=== PATIENT | male | born 1960 | race Caucasian/White ===

== ENCOUNTER 2017-09-15 22:45 | Inpatient (IN) | payer MEDICARE, MEDICAID ==
[~2017-09-15] VITALS: Ht 177.8 cm; Wt 89.5 kg
[2017-09-15] MEDS ORDERED: LABE100T PO (23:13)
[2017-09-15] MEDS ORDERED: SERT50TA12 PO (23:13)
[2017-09-15] MEDS ORDERED: BENA20 PO (23:13)
[2017-09-15] MEDS ORDERED: TRAM50TA4 PO (23:13)
[2017-09-15] MEDS ORDERED: ATOR40TA28 PO (23:13)
[2017-09-15] MEDS ORDERED: QUET200T PO (23:13)
[2017-09-15] MEDS ORDERED: METF500T4 PO (23:13)
[2017-09-15] MEDS ORDERED: INSULIN REGULAR, HUMAN 100 UNITS/ML SQ ONE (23:45)
[2017-09-15 23:52] LABS: GLUCOSE COMMENT 1 Doctor Notified; GLUCOSE COMMENT 2 Repeated; GLUCOSE,POINT OF CARE 415 MG/DL (70-110)
[2017-09-16 00:58] LABS: BASOPHILS % (AUTO) 0.3 % (0.0-2.0); EOSINOPHILS % (AUTO) 1.2 % (1.0-6.0); HEMATOCRIT 36.4 % (41-53); HEMOGLOBIN 12.7 g/dL (13.5-17.5); LYMPHOCYTES # (AUTO) 1.3 K/uL (1.0-4.8); LYMPHOCYTES % (AUTO) 16.8 % (22.0-44.0); MEAN CORPUSCULAR HEMOGLOBIN 32.3 pg (26.0-34.0); MEAN CORPUSCULAR HGB CONC 34.8 G/dL (31.0-37.0); MEAN CORPUSCULAR VOLUME 93 fL (80-100); MONOCYTES # (AUTO) 0.7 K/uL (0.1-1.0); MONOCYTES % (AUTO) 8.6 % (2.0-9.0); NEUTROPHILS # (AUTO) 5.7 K/uL (1.8-7.7); NEUTROPHILS % (AUTO) 73.1 % (40.0-70.0); PLATELET COUNT (AUTO) 274 K/uL (150-450); RED BLOOD CELL COUNT(AUTO) 3.91 MIL/uL (4.50-5.90); RED CELL DISTRIBUTION WIDTH 13.5 % (11.5-14.5); WHITE BLOOD COUNT (AUTO) 7.8 K/uL (4.5-11.0)
[2017-09-16 01:08] LABS: ANION GAP 10 mmol/L (8-16); CARBON DIOXIDE 28 mmol/L (22-29); CHLORIDE 97 mmol/L (98-107); CREATININE 0.98 mg/dL (0.60-1.30); POTASSIUM 4.1 mmol/L (3.5-5.1); SODIUM SERUM 135 mmol/L (136-145); UREA NITROGEN, BLOOD 30 mg/dL (7-18)
[2017-09-16 01:09] LABS: CALCIUM, TOTAL 9.6 mg/dL (8.8-10.5); GLOMERULAR FILTR. RATE CALC > 60 mL/min (>60)
[2017-09-16 01:15] LABS: ALANINE AMINOTRANSFERASE 21 U/L (12-78); ALBUMIN 3.7 g/dL (3.4-5.0); ASPARTATE AMINOTRANSFERASE 11 U/L (15-37); BILIRUBIN,TOTAL 0.5 mg/dL (0.1-1.0); TOTAL PROTEIN, SERUM 7.3 g/dL (6.4-8.2)
[2017-09-16 01:27] LABS: GLUCOSE,POINT OF CARE 346 MG/DL (70-110)
[2017-09-16] MEDS ORDERED: INSULIN REGULAR, HUMAN 100 UNITS/ML SQ ONE (02:00)
[2017-09-16] MEDS ORDERED: QUEtiapine FUMARATE 100 MG TABLET PO ONE (02:15)
[2017-09-16] MEDS ORDERED: LORazepam 2 MG/ML VIAL IM ONE (02:30)
[2017-09-16] MEDS ORDERED: DiphenhydrAMINE HCL 50 MG/ML VIAL IM ONE (02:30)
[2017-09-16 02:57] LABS: GLUCOSE,POINT OF CARE 267 MG/DL (70-110)
[2017-09-16] MEDS ORDERED: QUEtiapine FUMARATE 100 MG TABLET PO PRN (03:45)
[2017-09-16 04:37] LABS: GLUCOSE,POINT OF CARE 204 MG/DL (70-110)
[2017-09-16 05:10] LABS: CHOL/HDL RATIO 4.5 (4.2-7.3); THYROID STIMULATING HORMONE 2.64 uIU/mL (0.36-3.74)
[2017-09-16 05:48] VITALS: BP 140/87
[2017-09-16 06:22] LABS: GLUCOSE,POINT OF CARE 162 MG/DL (70-110)
[2017-09-16] MEDS ORDERED: PNEUMOCOCCAL VACCINE POLYVALENT 0.5 ML VIAL [PPSV23] IM ONE (06:45)
[2017-09-16] MEDS ORDERED: INFLUENZA VIRUS VACCINE QVS 2017-18 (3YR+)/PF 60 MCG/0.5 ML SYRINGE IM ONE (06:45)
[2017-09-16] MEDS ORDERED: CloNIDine HCL 0.1 MG TABLET PO PRN (07:15)
[2017-09-16] MEDS ORDERED: ALBUTEROL SULFATE HFA 90 MCG/PUFF 8 GM INHALER IH PRN (07:15)
[2017-09-16] MEDS ORDERED: GLUCAGON,HUMAN RECOMBINANT 1 MG VIAL IM PRN (07:15)
[2017-09-16] MEDS ORDERED: ACETAMINOPHEN 325 MG TABLET PO PRN (07:15)
[2017-09-16] MEDS ORDERED: PETROLATUM,WHITE 71 GM JELLY TP PRN (07:15)
[2017-09-16] MEDS ORDERED: MAG HYDROX/AL HYDROX/SIMETH ES 30 ML SUSPENSION UDCUP PO PRN (07:15)
[2017-09-16] MEDS ORDERED: MAGNESIUM HYDROXIDE SUSPENSION 30 ML UDCUP PO PRN (07:15)
[2017-09-16] MEDS ORDERED: LOPERAMIDE HCL 2 MG CAPSULE PO PRN (07:15)
[2017-09-16] MEDS ORDERED: ONDANSETRON HCL 4 MG TABLET PO PRN (07:15)
[2017-09-16] MEDS ORDERED: BENZOCAINE/MENTHOL LOZENGE MM PRN (07:15)
[2017-09-16] MEDS ORDERED: BACITRACIN 28.4 GM OINTMENT TP PRN (07:15)
[2017-09-16] MEDS: MetFORMIN HCL 500 MG TABLET PO SCH ×2 (07:26→16:56)
[2017-09-16 08:20] VITALS: BP 145/76
[2017-09-16] MEDS: BENAZEPRIL HCL 20 MG TABLET PO SCH (09:00)
[2017-09-16] MEDS: ATORVASTATIN CALCIUM 40 MG TABLET PO SCH (09:08)
[2017-09-16] MEDS: INSULIN ASPART 100 UNITS/ML SQ PRN ×3 (11:31→20:31)
[2017-09-16 11:32] LABS: GLUCOSE COMMENT 1 Received Meds; GLUCOSE,POINT OF CARE 210 MG/DL (70-110)
[2017-09-16] MEDS: SERTRALINE HCL 50 MG TABLET PO SCH (11:42)
[2017-09-16 16:00] VITALS: BP 155/76
[2017-09-16 16:52] LABS: GLUCOSE COMMENT 1 Received Meds; GLUCOSE,POINT OF CARE 211 MG/DL (70-110)
[2017-09-16] MEDS: QUEtiapine FUMARATE 200 MG TABLET PO SCH (20:06)
[2017-09-16 20:36] LABS: GLUCOSE COMMENT 1 Received Meds; GLUCOSE,POINT OF CARE 291 MG/DL (70-110)
[2017-09-17 00:47] VITALS: BP 132/80
[2017-09-17] MEDS: MetFORMIN HCL 500 MG TABLET PO SCH ×2 (06:16→17:04)
[2017-09-17] MEDS: INSULIN ASPART 100 UNITS/ML SQ PRN ×4 (06:20→21:30)
[2017-09-17 06:43] LABS: GLUCOSE,POINT OF CARE 278 MG/DL (70-110)
[2017-09-17] MEDS: ATORVASTATIN CALCIUM 40 MG TABLET PO SCH (08:22)
[2017-09-17] MEDS: BENAZEPRIL HCL 20 MG TABLET PO SCH (08:23)
[2017-09-17] MEDS: SERTRALINE HCL 50 MG TABLET PO SCH (08:23)
[2017-09-17 08:33] VITALS: BP 124/91
[2017-09-17] MEDS: NICOTINE 21 MG/24 HOUR PATCH TD SCH (09:50)
[2017-09-17 10:57] LABS: GLUCOSE,POINT OF CARE 328 MG/DL (70-110)
[2017-09-17] MEDS: LORazepam 2 MG TABLET PO PRN (13:57)
[2017-09-17 16:29] VITALS: BP 122/69
[2017-09-17 17:02] LABS: GLUCOSE,POINT OF CARE 302 MG/DL (70-110)
[2017-09-17] MEDS: QUEtiapine FUMARATE 200 MG TABLET PO SCH (21:21)
[2017-09-17] MEDS: IBUPROFEN 600 MG TABLET PO PRN (21:46)
[2017-09-17 21:47] LABS: GLUCOSE,POINT OF CARE 283 MG/DL (70-110)
[2017-09-18] MEDS: INSULIN ASPART 100 UNITS/ML SQ PRN ×4 (06:42→17:00)
[2017-09-18] MEDS: MetFORMIN HCL 500 MG TABLET PO SCH ×2 (06:45→16:54)
[2017-09-18 07:00] VITALS: BP 142/92
[2017-09-18 07:43] LABS: GLUCOSE,POINT OF CARE 279 MG/DL (70-110)
[2017-09-18 08:12] VITALS: BP 133/90
[2017-09-18] MEDS: ATORVASTATIN CALCIUM 40 MG TABLET PO SCH (08:12)
[2017-09-18] MEDS: BENAZEPRIL HCL 20 MG TABLET PO SCH (08:12)
[2017-09-18] MEDS: NICOTINE 21 MG/24 HOUR PATCH TD SCH (08:12)
[2017-09-18] MEDS: SERTRALINE HCL 50 MG TABLET PO SCH (08:12)
[2017-09-18 09:57] VITALS: BP 135/86
[2017-09-18] MEDS: IBUPROFEN 600 MG TABLET PO PRN (09:57)
[2017-09-18] MEDS: LORazepam 2 MG TABLET PO PRN ×2 (09:57→15:38)
[2017-09-18 11:08] LABS: GLUCOSE,POINT OF CARE 308 MG/DL (70-110)
[2017-09-18 16:56] LABS: GLUCOSE,POINT OF CARE 356 MG/DL (70-110)
[2017-09-18 17:51] VITALS: BP 130/82
[2017-09-18] MEDS: QUEtiapine FUMARATE 200 MG TABLET PO SCH (20:33)
[2017-09-18 21:37] LABS: GLUCOSE,POINT OF CARE 320 MG/DL (70-110)
[2017-09-19 06:15] VITALS: BP 137/96
[2017-09-19] MEDS: IBUPROFEN 600 MG TABLET PO PRN (06:15)
[2017-09-19] MEDS: LORazepam 2 MG TABLET PO PRN ×2 (06:15→17:42)
[2017-09-19 06:30] VITALS: BP 140/81
[2017-09-19] MEDS: MetFORMIN HCL 500 MG TABLET PO SCH ×2 (07:19→16:32)
[2017-09-19] MEDS: INSULIN ASPART 100 UNITS/ML SQ PRN ×4 (07:24→20:53)
[2017-09-19 07:52] LABS: GLUCOSE,POINT OF CARE 383 MG/DL (70-110)
[2017-09-19] MEDS: SERTRALINE HCL 50 MG TABLET PO SCH (08:55)
[2017-09-19] MEDS: ATORVASTATIN CALCIUM 40 MG TABLET PO SCH (08:55)
[2017-09-19] MEDS: NICOTINE 21 MG/24 HOUR PATCH TD SCH (08:56)
[2017-09-19] MEDS: BENAZEPRIL HCL 20 MG TABLET PO SCH (08:56)
[2017-09-19 09:33] VITALS: BP 155/84
[2017-09-19 12:17] LABS: GLUCOSE,POINT OF CARE 233 MG/DL (70-110)
[2017-09-19 16:32] LABS: GLUCOSE,POINT OF CARE 290 MG/DL (70-110)
[2017-09-19] MEDS: GlipiZIDE 5 MG TABLET PO SCH (16:32)
[2017-09-19 16:46] VITALS: BP 122/75
[2017-09-19] MEDS: QUEtiapine FUMARATE 200 MG TABLET PO SCH (20:40)
[2017-09-19 20:52] LABS: GLUCOSE,POINT OF CARE 261 MG/DL (70-110)
[2017-09-20 00:57] VITALS: BP 120/76
[2017-09-20] MEDS: MetFORMIN HCL 500 MG TABLET PO SCH ×2 (06:33→16:19)
[2017-09-20] MEDS: GlipiZIDE 5 MG TABLET PO SCH ×2 (06:33→16:19)
[2017-09-20] MEDS: INSULIN ASPART 100 UNITS/ML SQ PRN ×4 (06:34→21:23)
[2017-09-20 06:38] LABS: GLUCOSE,POINT OF CARE 282 MG/DL (70-110)
[2017-09-20] MEDS: IBUPROFEN 600 MG TABLET PO PRN (06:48)
[2017-09-20] MEDS: LORazepam 2 MG TABLET PO PRN ×2 (06:48→13:21)
[2017-09-20] MEDS: ATORVASTATIN CALCIUM 40 MG TABLET PO SCH (08:45)
[2017-09-20] MEDS: NICOTINE 21 MG/24 HOUR PATCH TD SCH (08:45)
[2017-09-20] MEDS: BENAZEPRIL HCL 20 MG TABLET PO SCH (08:45)
[2017-09-20] MEDS: SERTRALINE HCL 50 MG TABLET PO SCH (08:45)
[2017-09-20 09:36] VITALS: BP 128/85
[2017-09-20 11:12] LABS: GLUCOSE,POINT OF CARE 293 MG/DL (70-110)
[2017-09-20] MEDS: QUEtiapine FUMARATE 200 MG TABLET PO SCH ×2 (14:32→20:37)
[2017-09-20 16:12] VITALS: BP 131/77
[2017-09-20 16:52] LABS: GLUCOSE,POINT OF CARE 279 MG/DL (70-110)
[2017-09-20 21:22] LABS: GLUCOSE,POINT OF CARE 231 MG/DL (70-110)
[2017-09-20] MEDS: ZOLPIDEM TARTRATE 10 MG TABLET PO PRN (23:30)
[2017-09-21 00:09] VITALS: BP 106/74
[2017-09-21] MEDS: GlipiZIDE 5 MG TABLET PO SCH ×2 (06:32→16:33)
[2017-09-21] MEDS: MetFORMIN HCL 500 MG TABLET PO SCH ×2 (06:32→16:33)
[2017-09-21] MEDS: INSULIN ASPART 100 UNITS/ML SQ PRN ×4 (06:54→21:04)
[2017-09-21 07:22] LABS: GLUCOSE,POINT OF CARE 273 MG/DL (70-110)
[2017-09-21] MEDS: SERTRALINE HCL 50 MG TABLET PO SCH (08:16)
[2017-09-21] MEDS: ATORVASTATIN CALCIUM 40 MG TABLET PO SCH (08:16)
[2017-09-21] MEDS: NICOTINE 21 MG/24 HOUR PATCH TD SCH (08:16)
[2017-09-21] MEDS: QUEtiapine FUMARATE 200 MG TABLET PO SCH ×2 (08:16→20:59)
[2017-09-21] MEDS: BENAZEPRIL HCL 20 MG TABLET PO SCH (08:16)
[2017-09-21] MEDS: LORazepam 2 MG TABLET PO PRN ×2 (08:41→16:39)
[2017-09-21 09:17] VITALS: BP 136/71
[2017-09-21 11:12] LABS: GLUCOSE COMMENT 1 Received Meds; GLUCOSE,POINT OF CARE 279 MG/DL (70-110)
[2017-09-21 17:12] LABS: GLUCOSE COMMENT 1 Received Meds; GLUCOSE,POINT OF CARE 314 MG/DL (70-110)
[2017-09-21 17:41] VITALS: BP 126/69
[2017-09-21] MEDS: ZOLPIDEM TARTRATE 10 MG TABLET PO PRN (20:59)
[2017-09-21 21:16] LABS: GLUCOSE COMMENT 1 Received Meds; GLUCOSE,POINT OF CARE 308 MG/DL (70-110)
[2017-09-22 05:06] VITALS: BP 121/73
[2017-09-22] MEDS: MetFORMIN HCL 500 MG TABLET PO SCH ×2 (06:18→16:31)
[2017-09-22] MEDS: INSULIN ASPART 100 UNITS/ML SQ PRN ×4 (06:19→20:31)
[2017-09-22 07:17] LABS: GLUCOSE,POINT OF CARE 286 MG/DL (70-110)
[2017-09-22] MEDS: GlipiZIDE 5 MG TABLET PO SCH ×2 (07:21→16:30)
[2017-09-22] MEDS: SERTRALINE HCL 50 MG TABLET PO SCH (08:32)
[2017-09-22] MEDS: ATORVASTATIN CALCIUM 40 MG TABLET PO SCH (08:32)
[2017-09-22] MEDS: BENAZEPRIL HCL 20 MG TABLET PO SCH (08:32)
[2017-09-22] MEDS: QUEtiapine FUMARATE 200 MG TABLET PO SCH ×2 (08:32→20:23)
[2017-09-22] MEDS: NICOTINE 21 MG/24 HOUR PATCH TD SCH (08:33)
[2017-09-22 09:19] VITALS: BP 148/98
[2017-09-22] MEDS: LORazepam 2 MG TABLET PO PRN ×2 (11:22→16:10)
[2017-09-22 11:32] LABS: GLUCOSE,POINT OF CARE 306 MG/DL (70-110)
[2017-09-22 16:27] LABS: GLUCOSE COMMENT 1 Received Meds; GLUCOSE,POINT OF CARE 274 MG/DL (70-110)
[2017-09-22 17:00] VITALS: BP 154/95
[2017-09-22 20:00] VITALS: BP 146/80
[2017-09-22] MEDS: ZOLPIDEM TARTRATE 10 MG TABLET PO PRN (20:28)
[2017-09-22 20:37] LABS: GLUCOSE COMMENT 1 Received Meds; GLUCOSE,POINT OF CARE 311 MG/DL (70-110)
[2017-09-22] MEDS: LABETALOL HCL 100 MG TABLET PO SCH (21:46)
[2017-09-22 22:30] VITALS: BP 140/80
[2017-09-23] MEDS: GlipiZIDE 5 MG TABLET PO SCH ×2 (06:09→16:11)
[2017-09-23] MEDS: MetFORMIN HCL 500 MG TABLET PO SCH ×2 (06:09→16:53)
[2017-09-23] MEDS: INSULIN ASPART 100 UNITS/ML SQ PRN ×4 (06:10→20:28)
[2017-09-23 06:30] VITALS: BP 140/86
[2017-09-23 06:47] LABS: GLUCOSE,POINT OF CARE 271 MG/DL (70-110)
[2017-09-23] MEDS: ATORVASTATIN CALCIUM 40 MG TABLET PO SCH (08:21)
[2017-09-23] MEDS: SERTRALINE HCL 50 MG TABLET PO SCH (08:21)
[2017-09-23] MEDS: BENAZEPRIL HCL 20 MG TABLET PO SCH (08:21)
[2017-09-23] MEDS: NICOTINE 21 MG/24 HOUR PATCH TD SCH (08:22)
[2017-09-23] MEDS: LABETALOL HCL 100 MG TABLET PO SCH ×2 (08:22→16:11)
[2017-09-23] MEDS: QUEtiapine FUMARATE 200 MG TABLET PO SCH ×2 (08:22→20:23)
[2017-09-23 10:07] VITALS: BP 131/79
[2017-09-23] MEDS: LORazepam 2 MG TABLET PO PRN ×2 (10:26→17:05)
[2017-09-23 10:57] LABS: GLUCOSE,POINT OF CARE 238 MG/DL (70-110)
[2017-09-23] MEDS: DIVALPROEX SODIUM 500 MG DR TABLET PO SCH (16:11)
[2017-09-23 16:22] LABS: GLUCOSE COMMENT 1 Received Meds; GLUCOSE,POINT OF CARE 339 MG/DL (70-110)
[2017-09-23 16:38] VITALS: BP 132/72
[2017-09-23] MEDS: ZOLPIDEM TARTRATE 10 MG TABLET PO PRN (20:28)
[2017-09-23 20:47] LABS: GLUCOSE COMMENT 1 Received Meds; GLUCOSE,POINT OF CARE 341 MG/DL (70-110)
[2017-09-24 03:50] VITALS: BP 133/77
[2017-09-24] MEDS: GlipiZIDE 5 MG TABLET PO SCH (06:11)
[2017-09-24] MEDS: MetFORMIN HCL 500 MG TABLET PO SCH ×2 (06:11→16:23)
[2017-09-24] MEDS: INSULIN ASPART 100 UNITS/ML SQ PRN ×4 (06:12→21:18)
[2017-09-24 06:43] LABS: GLUCOSE COMMENT 1 Received Meds; GLUCOSE,POINT OF CARE 251 MG/DL (70-110)
[2017-09-24] MEDS: DIVALPROEX SODIUM 500 MG DR TABLET PO SCH ×2 (08:26→16:23)
[2017-09-24] MEDS: BENAZEPRIL HCL 20 MG TABLET PO SCH (08:26)
[2017-09-24] MEDS: LABETALOL HCL 100 MG TABLET PO SCH ×2 (08:26→16:49)
[2017-09-24] MEDS: SERTRALINE HCL 50 MG TABLET PO SCH (08:26)
[2017-09-24] MEDS: QUEtiapine FUMARATE 200 MG TABLET PO SCH ×2 (08:26→20:57)
[2017-09-24] MEDS: NICOTINE 21 MG/24 HOUR PATCH TD SCH (08:26)
[2017-09-24] MEDS: ATORVASTATIN CALCIUM 40 MG TABLET PO SCH (08:26)
[2017-09-24] MEDS: LORazepam 2 MG TABLET PO PRN ×2 (08:28→16:24)
[2017-09-24 08:50] VITALS: BP 122/77
[2017-09-24 11:48] LABS: GLUCOSE,POINT OF CARE 254 MG/DL (70-110)
[2017-09-24] MEDS: GlipiZIDE 10 MG TABLET PO SCH (16:23)
[2017-09-24 16:35] VITALS: BP 138/79
[2017-09-24 16:42] LABS: GLUCOSE COMMENT 1 Received Meds; GLUCOSE,POINT OF CARE 351 MG/DL (70-110)
[2017-09-24] MEDS: ZOLPIDEM TARTRATE 10 MG TABLET PO PRN (21:17)
[2017-09-24 21:27] LABS: GLUCOSE COMMENT 1 Received Meds; GLUCOSE,POINT OF CARE 244 MG/DL (70-110)
[2017-09-25 05:59] VITALS: BP 111/69
[2017-09-25] MEDS: INSULIN ASPART 100 UNITS/ML SQ PRN ×4 (06:39→21:00)
[2017-09-25] MEDS: MetFORMIN HCL 500 MG TABLET PO SCH ×2 (06:40→16:53)
[2017-09-25] MEDS: GlipiZIDE 10 MG TABLET PO SCH ×2 (06:40→16:53)
[2017-09-25 06:54] LABS: GLUCOSE,POINT OF CARE 262 MG/DL (70-110)
[2017-09-25 08:25] VITALS: BP 136/85
[2017-09-25] MEDS: QUEtiapine FUMARATE 200 MG TABLET PO SCH ×2 (08:41→21:35)
[2017-09-25] MEDS: DIVALPROEX SODIUM 500 MG DR TABLET PO SCH ×2 (08:41→16:52)
[2017-09-25] MEDS: ATORVASTATIN CALCIUM 40 MG TABLET PO SCH (08:41)
[2017-09-25] MEDS: NICOTINE 21 MG/24 HOUR PATCH TD SCH (08:42)
[2017-09-25] MEDS: SERTRALINE HCL 50 MG TABLET PO SCH (08:42)
[2017-09-25] MEDS: LABETALOL HCL 100 MG TABLET PO SCH ×2 (08:42→16:53)
[2017-09-25] MEDS: BENAZEPRIL HCL 20 MG TABLET PO SCH (08:42)
[2017-09-25 11:12] LABS: GLUCOSE,POINT OF CARE 327 MG/DL (70-110)
[2017-09-25] MEDS: LORazepam 2 MG TABLET PO PRN ×2 (13:01→17:17)
[2017-09-25 16:00] VITALS: BP 142/86
[2017-09-25] MEDS: ZOLPIDEM TARTRATE 10 MG TABLET PO PRN (21:35)
[2017-09-26 06:17] LABS: GLUCOSE COMMENT 1 Received Meds; GLUCOSE,POINT OF CARE 359 MG/DL (70-110)
[2017-09-26 06:17] LABS: GLUCOSE COMMENT 1 Received Meds; GLUCOSE,POINT OF CARE 269 MG/DL (70-110)
[2017-09-26 06:18] LABS: GLUCOSE,POINT OF CARE 302 MG/DL (70-110)
[2017-09-26] MEDS: GlipiZIDE 10 MG TABLET PO SCH (06:19)
[2017-09-26] MEDS: INSULIN ASPART 100 UNITS/ML SQ PRN ×2 (06:37→11:17)
[2017-09-26 06:41] VITALS: BP 140/86
[2017-09-26] MEDS: MetFORMIN HCL 500 MG TABLET PO SCH (07:06)
[2017-09-26] MEDS: SERTRALINE HCL 50 MG TABLET PO SCH (08:45)
[2017-09-26] MEDS: QUEtiapine FUMARATE 200 MG TABLET PO SCH (08:45)
[2017-09-26] MEDS: BENAZEPRIL HCL 20 MG TABLET PO SCH (08:45)
[2017-09-26] MEDS: ATORVASTATIN CALCIUM 40 MG TABLET PO SCH (08:45)
[2017-09-26] MEDS: DIVALPROEX SODIUM 500 MG DR TABLET PO SCH (08:45)
[2017-09-26] MEDS: LABETALOL HCL 100 MG TABLET PO SCH (08:45)
[2017-09-26] MEDS: NICOTINE 21 MG/24 HOUR PATCH TD SCH (08:46)
[2017-09-26 10:16] VITALS: BP 120/75
[2017-09-26 10:52] LABS: GLUCOSE,POINT OF CARE 327 MG/DL (70-110)
[2017-09-26] MEDS ORDERED: GLIP10 PO (12:01)
[2017-09-26] MEDS ORDERED: DIVA500T35 PO (12:01)
== END 2017-09-26 13:30 | disposition home or self-care (01) | DRG 885 ==
LOC: EMS 22:50 → B2S 09-16 03:38
DX: F20.0 Paranoid schizophrenia (principal); E11.65 Type 2 diabetes mellitus with hyperglycemia; E87.1 Hypo-osmolality and hyponatremia; E78.5 Hyperlipidemia, unspecified; F15.10 Other stimulant abuse, uncomplicated; F17.200 Nicotine dependence, unspecified, uncomplicated; G47.00 Insomnia, unspecified; I10 Essential (primary) hypertension; J44.9 Chronic obstructive pulmonary disease, unspecified; M19.90 Unspecified osteoarthritis, unspecified site; Z79.84 Long term (current) use of oral hypoglycemic drugs; Z79.899 Other long term (current) drug therapy
CPT/HCPCS: 82962; 84443; 96372; 99285; 99406; G0480; J1200; J1815; J2060

== ENCOUNTER 2018-08-01 21:23 | Emergency (ER) | payer MEDICARE, MEDICAID ==
[~2018-08-01] VITALS: Ht 175.3 cm; Wt 81.8 kg
[~2018-08-01 21:23] MED LIST: ATOR40TA28 PO; BENA20 PO; DIVA-78 PO; GLIP10 PO; LABE100T5 PO; METF-960 PO; QUET200T PO; SERT50TA12 PO
[2018-08-01] MEDS ORDERED: HALOPERIDOL 5 MG TABLET PO ONE (23:15)
[2018-08-01] MEDS ORDERED: QUEtiapine FUMARATE 100 MG TABLET PO ONE (23:45)
[2018-08-02 03:15] VITALS: BP 126/85
== END 2018-08-02 03:30 | disposition home or self-care (01) ==
LOC: EMS 21:24
DX: F25.9 Schizoaffective disorder, unspecified (principal); F32.9 Major depressive disorder, single episode, unspecified; E11.9 Type 2 diabetes mellitus without complications; E78.00 Pure hypercholesterolemia, unspecified; I10 Essential (primary) hypertension; F17.210 Nicotine dependence, cigarettes, uncomplicated; Z79.84 Long term (current) use of oral hypoglycemic drugs; Z79.899 Other long term (current) drug therapy
CPT/HCPCS: 99284

== ENCOUNTER 2019-01-14 19:10 | Emergency (ER) | payer MEDICARE, MEDICAID ==
[~2019-01-14] VITALS: Ht 188 cm; Wt 81.8 kg
[2019-01-14 19:12] VITALS: BP 140/68
[2019-01-14 19:31] LABS: GLUCOSE,POINT OF CARE 124 MG/DL (70-110)
== END 2019-01-14 21:00 | disposition left against medical advice (07) ==
LOC: EMS 19:11
DX: R06.02 Shortness of breath (principal); Z53.21 Procedure and treatment not carried out due to patient leaving prior to being seen by health care provider
CPT/HCPCS: 93005

== ENCOUNTER 2020-08-10 14:57 | Emergency (ER) | payer MEDICARE, MEDICAID ==
[~2020-08-10] VITALS: Ht 172.7 cm; Wt 75.0 kg
[~2020-08-10 14:57] MED LIST changes: -BENA20 PO; +BENA20TA11 PO; +DIVA-112 PO; -DIVA-78 PO
[2020-08-10] MEDS ORDERED: SODIUM CHLORIDE 0.9% 1,000 ML IV ONE ×2 (15:30→17:45)
[2020-08-10] MEDS ORDERED: INSULIN REGULAR, HUMAN 100 UNITS/ML IVP ONE (15:30)
[2020-08-10 16:25] LABS: BASOPHILS % (AUTO) 0.1 % (0.0-2.0); EOSINOPHILS % (AUTO) 0.2 % (1.0-6.0); HEMATOCRIT 32.2 % (41-53); HEMOGLOBIN 11.4 g/dL (13.5-17.5); LYMPHOCYTES # (AUTO) 0.6 K/uL (1.0-4.8); LYMPHOCYTES % (AUTO) 6.8 % (22.0-44.0); MEAN CORPUSCULAR HEMOGLOBIN 32.8 pg (26.0-34.0); MEAN CORPUSCULAR HGB CONC 35.3 G/dL (31.0-37.0); MEAN CORPUSCULAR VOLUME 93 fL (80-100); MONOCYTES # (AUTO) 0.5 K/uL (0.1-1.0); MONOCYTES % (AUTO) 5.4 % (2.0-9.0); NEUTROPHILS # (AUTO) 7.5 K/uL (1.8-7.7); PLATELET COUNT (AUTO) 232 K/uL (150-450); RED BLOOD CELL COUNT(AUTO) 3.48 MIL/uL (4.50-5.90); RED CELL DISTRIBUTION WIDTH 13.4 % (11.5-14.5)
[2020-08-10 16:30] LABS: NEUTROPHILS % (AUTO) 87.5 % (40.0-70.0)
[2020-08-10 17:09] LABS: ALANINE AMINOTRANSFERASE 21 U/L (12-78); ALBUMIN 2.2 g/dL (3.4-5.0); ALKALINE PHOSPHATASE 84 U/L (46-116); ANION GAP 5 mmol/L (8-16); ASPARTATE AMINOTRANSFERASE 16 U/L (15-37); BILIRUBIN,TOTAL 0.3 mg/dL (0.1-1.0); CALCIUM, TOTAL 8.7 mg/dL (8.8-10.5); CARBON DIOXIDE 32 mmol/L (22-29); CHLORIDE 99 mmol/L (98-107); CREATINE KINASE, TOTAL ONLY 177 U/L (39-308); CREATININE 1.53 mg/dL (0.60-1.30); GLOMERULAR FILTR. RATE CALC 47 mL/min (>60); GLUCOSE,RANDOM 411 mg/dL (70-110); POTASSIUM 4.1 mmol/L (3.5-5.1); SODIUM SERUM 136 mmol/L (136-145); TOTAL PROTEIN, SERUM 5.4 g/dL (6.4-8.2); UREA NITROGEN, BLOOD 37 mg/dL (7-18)
[2020-08-10 17:27] LABS: VALPROIC ACID 10 mcg/mL (50-100)
[2020-08-10 17:52] LABS: ACETONE,BLOOD NEGATIVE (NEGATIVE)
[2020-08-10 18:51] LABS: APPEARANCE,URINE CLEAR (CLEAR); BILIRUBIN,URINE NEGATIVE (NEGATIVE); GLUCOSE, URINE (UA) >=1000 mg/dL (NEGATIVE); KETONES,URINE NEGATIVE (NEGATIVE); LEUKOCYTE ESTERASE ,URINE NEGATIVE (NEGATIVE); NITRATE,URINE NEGATIVE (NEGATIVE); OCCULT BLOOD,URINE NEGATIVE (NEGATIVE); PROTEIN,URINE SEE CONFIRM (NEGATIVE)
[2020-08-10 18:59] LABS: AMPHET/METH SCREEN,URINE NEGATIVE (NEGATIVE); BARBITURATE SCREEN, URINE NEGATIVE (NEGATIVE); BENZODIAZEPINES SCREEN,URINE NEGATIVE (NEGATIVE); CANNABINOID SCREEN,URINE NEGATIVE (NEGATIVE); COCAINE SCREEN,URINE NEGATIVE (NEGATIVE); METHADONE SCREEN, URINE NEGATIVE (NEGATIVE); OPIATE SCREEN,URINE NEGATIVE (NEGATIVE); PHENCYCLIDINE SCREEN,URINE NEGATIVE (NEGATIVE)
[2020-08-10 19:51] LABS: SULFOSALICYLIC ACID,URINE 4+ (Negative)
[2020-08-10 19:52] LABS: BACTERIA,URINE None Seen /HPF (None Seen); RBC,URINE None Seen /HPF (0-2); SQUAMOUS EPITHELIAL CELL,UR Rare /LPF (None Seen); WBC,URINE 0-2 /HPF (0-5)
[2020-08-10 20:06] LABS: GLUCOSE,POINT OF CARE 280 MG/DL (70-110)
[2020-08-11] MEDS ORDERED: ACETAMINOPHEN 500 MG TABLET PO ONE (00:30)
[2020-08-11 00:45] LABS: GLUCOSE,POINT OF CARE 332 MG/DL (70-110)
[2020-08-11] MEDS ORDERED: INSULIN REGULAR, HUMAN 100 UNITS/ML IVP ONE (00:45)
[2020-08-11] MEDS ORDERED: IBUPROFEN 600 MG TABLET PO ONE (04:15)
[2020-08-11 06:30] LABS: GLUCOSE,POINT OF CARE 222 MG/DL (70-110)
[2020-08-11 09:30] VITALS: BP 146/80
[2020-08-11] MEDS ORDERED: TraMADol HCL 50 MG TABLET PO ONE (09:30)
[2020-08-11] MEDS ORDERED: BENA20TA11 PO (10:17)
[2020-08-11] MEDS ORDERED: HYDR-1475 PO (10:17)
[2020-08-11] MEDS ORDERED: PALI6TAB15 PO (10:17)
[2020-08-11] MEDS ORDERED: INS7030 SQ (10:17)
[2020-08-11] MEDS ORDERED: AMLO-257 PO (10:17)
== END 2020-08-11 09:57 | disposition home or self-care (01) ==
LOC: EMS 14:59
DX: G89.29 Other chronic pain (principal); M79.672 Pain in left foot; E11.9 Type 2 diabetes mellitus without complications; E78.00 Pure hypercholesterolemia, unspecified; I10 Essential (primary) hypertension; F32.9 Major depressive disorder, single episode, unspecified; F17.210 Nicotine dependence, cigarettes, uncomplicated
CPT/HCPCS: 36415; 80053; 80164; 80307; 81001; 82009; 82550; 82962; 84484; 85025; 93005; 96361; 96374; 96376; 99285; G0480; J1815 ×2; J7030 ×2